=== PATIENT | male | born 1980 | race Caucasian/White ===

== ENCOUNTER 2017-10-30 12:57 | Emergency (ER) | payer OTHER ==
[~2017-10-30] VITALS: Ht 180.3 cm; Wt 118.9 kg
[~2017-10-30 12:57] MED LIST: BUPR2MIS SL
[2017-10-30 13:03] VITALS: Ht 180.3 cm; Wt 118.9 kg
--- NOTE | 2017-10-30 13:31 | EMERGENCY ROOM VISIT NOTE ---
History Report prepared by Triston: Sotero Cunningham Under the Supervision of: Dr. Porfirio Schaffer M.D. First contact with patient: 13:07 Chief Complaint: ANXIETY Stated Complaint: UNEASY PANIC ATTACKS LEFT ARM TINGLING History of Present Illness The patient is a 37 year old white male with a past medical history of cocaine abuse and panic attacks who presents to the ED with a cc of episodes of panic attacks beginning over the past week. Positive feels like passing out. Negative high blood pressure, loss of consciousness, cough, fevers, chills, leg swelling , suicidal ideations, homicidal ideations, hallucinations. He states that he had not had a panic attack ever since both his parents within 5 months of each other 2 years ago, but over the past 6 nights, he has been having panic attacks, especially when he "thinks about bad things". The patient notes that he has to drink a beer sometimes to go to sleep. He states that he does not take any daily medications. Source of History: patient Onset: Over past week Position: other (global) Symptom Intensity: episodes every night Quality: other (panic attacks) Timing: other (episodes) Associated Symptoms: No LOC, No fevers, No chills, No cough Note: Positive high blood pressure. Negative leg swelling, SI, HI. Review of Systems See HPI for pertinent positives and negatives. A total of ten systems were reviewed and were otherwise negative. Past Medical & Surgical Medical Problems: (1) Cocaine Abuse-Unspec (2) Panic attacks (3) Tobacco Use Disorder Family History No pertinent family history Social History Smoking Status: Current Some Day Smoker Alcohol Use: occasionally Drug Use: none Marital Status: single Occupation Status: employed Current/Historical Medications Scheduled Buprenorphine Hcl-Naloxone Hcl (Suboxone 8-2 Mg), 2 TAB SL DAILY Scheduled PRN Hydroxyzine Pamoate (Vistaril), 1 CAP PO BID PRN for Anxiety/Agitation Allergies Coded Allergies: BEE STING (Unverified Adverse Reaction, Unknown, UNKNOWN, 10/30/17) Uncoded Allergies: BEES (Allergy, Mild, 06/13/08) Physical Exam Vital Signs Date Time Temp Pulse Resp B/P (MAP) Pulse Ox O2 Delivery O2 Flow Rate FiO2 10/30/17 16:13 37.0 71 20 145/87 98 10/30/17 15:36 71 20 145/87 98 Room Air 10/30/17 13:03 37.0 93 18 181/124 98 Room Air Physical Exam GENERAL: Awake, alert, well-appearing, NAD HENT: Normocephalic, atraumatic. EYES: Normal conjunctiva. Sclera non-icteric. NECK: Supple. No nuchal rigidity. FROM. RESPIRATORY: CTAB, no rhonchi, wheezing, crackles CARDIAC: Tachy and regular, no MRG ABDOMEN: Soft, NTND, BS+ MSK: No chest wall TTP, no LE edema NEURO: GCS 15, CN 2-12 intact, moves all 4s on command SKIN: No rash or jaundice noted. Medical Decision & Procedures ER Provider Diagnostic Interpretation: X-ray: Per my interpretation, radiologist review. CHEST ONE VIEW PORTABLE CLINICAL HISTORY: 37 years-old Male presenting with ABDOMINAL PAIN/GI. TECHNIQUE: Portable upright AP view of the chest was obtained. COMPARISON: 03/31/2011. FINDINGS: Cardiomediastinal silhouette normal. Lungs and pleural spaces clear. Osseous structures normal. Upper abdomen normal. IMPRESSION: 1. No acute cardiopulmonary disease. Electronically signed by: John Baum M.D. 10/30/2017 2:40 PM Dictated Date/Time: 10/30/2017 2:39 PM Laboratory Results 10/30/17 14:45 Red Blood Count 5.00, Mean Corpuscular Volume 79.0, Mean Corpuscular Hemoglobin 27.4, Mean Corpuscular Hemoglobin Concent 34.7, Mean Platelet Volume 9.3, Neutrophils (%) (Auto) 70.8, Lymphocytes (%) (Auto) 20.2, Monocytes (%) (Auto) 7.7, Eosinophils (%) (Auto) 0.9, Basophils (%) (Auto) 0.2, Neutrophils # (Auto) 5.77, Lymphocytes # (Auto) 1.65, Monocytes # (Auto) 0.63, Eosinophils # (Auto) 0.07, Basophils # (Auto) 0.02 10/30/17 14:45 Test 10/30/17 14:45 White Blood Count 8.16 K/uL (4.8-10.8) Red Blood Count 5.00 M/uL (4.7-6.1) Hemoglobin 13.7 g/dL (14.0-18.0) Hematocrit 39.5 % (42-52) Mean Corpuscular Volume 79.0 fL (80-100) Mean Corpuscular Hemoglobin 27.4 pg (25-34) Mean Corpuscular Hemoglobin Concent 34.7 g/dl (32-36) Platelet Count 211 K/uL (130-400) Mean Platelet Volume 9.3 fL (7.4-10.4) Neutrophils (%) (Auto) 70.8 % Lymphocytes (%) (Auto) 20.2 % Monocytes (%) (Auto) 7.7 % Eosinophils (%) (Auto) 0.9 % Basophils (%) (Auto) 0.2 % Neutrophils # (Auto) 5.77 K/uL (1.4-6.5) Lymphocytes # (Auto) 1.65 K/uL (1.2-3.4) Monocytes # (Auto) 0.63 K/uL (0.11-0.59) Eosinophils # (Auto) 0.07 K/uL (0-0.5) Basophils # (Auto) 0.02 K/uL (0-0.2) RDW Standard Deviation 36.9 fL (36.4-46.3) RDW Coefficient of Variation 12.9 % (11.5-14.5) Immature Granulocyte % (Auto) 0.2 % Immature Granulocyte # (Auto) 0.02 K/uL (0.00-0.02) Anion Gap 6.0 mmol/L (3-11) Est Creatinine Clear Calc Drug Dose 152.7 ml/min Estimated GFR () 127.5 Estimated GFR (Non- 110.0 BUN/Creatinine Ratio 14.3 (10-20) Calcium Level 8.7 mg/dl (8.5-10.1) Total Bilirubin 0.2 mg/dl (0.2-1) Direct Bilirubin < 0.1 mg/dl (0-0.2) Aspartate Amino Transf (AST/SGOT) 27 U/L (15-37) Alanine Aminotransferase (ALT/SGPT) 52 U/L (12-78) Alkaline Phosphatase 61 U/L (45-117) Total Protein 7.9 gm/dl (6.4-8.2) Albumin 3.7 gm/dl (3.4-5.0) Lipase 125 U/L (73-393) Laboratory results reviewed by me Medications Administered Medications (Trade) Dose Ordered Sig/Rikki Route Start Time Stop Time Status Last Admin Dose Admin Lorazepam (Ativan Tab) 0.5 mg NOW STAT PO 10/30/17 13:50 10/30/17 13:52 DC 10/30/17 14:01 0.5 MG Lorazepam (Ativan Tab) 1 mg STK-MED ONCE .ROUTE 10/30/17 15:20 10/30/17 15:21 DC 10/30/17 15:20 1 MG Diphenhydramine HCl (Benadryl Cap) 25 mg NOW ONCE PO 10/30/17 15:30 10/30/17 15:31 DC 10/30/17 15:31 25 MG ECG Per My Interpretation Indication: SOB/dyspnea Rate (beats per minute): 72 Rhythm: normal sinus Findings: T-wave inversion (single in lead 3), other (normal intervals, normal axis, no other sts changes or twi) ED Course 1326: The patient was evaluated in room A8. A complete history and physical exam was performed. 1547: I reevaluated the patient and he is resting comfortably. Discussed results and discharge instructions: he verbalized understanding and agreement. The patient is ready for discharge. Medical Decision The patient is a 37 year old white male with a past medical history of cocaine abuse and panic attacks who presents to the ED with a cc of episodes of panic attacks beginning over the past week. Positive feels like passing out. Negative high blood pressure, loss of consciousness, cough, fevers, chills, leg swelling , suicidal ideations, homicidal ideations, hallucinations. Differential diagnosis: Etiologies such as mood disorder, infection, hypoglycemia, electrolyte abnormalities, cardiac sources, intracerebral event, toxicologic, neurologic, as well as others were entertained. Patient was seen and evaluated the bedside. Patient has complained of recurrent panic attacks. Patient states that typically happens after working he usually requires alcohol to help. Patient denies any SI, HI, or AVH. The patient is not seeing a psychiatrist or mental health specialist in the past. Patient does relate that this got worse when the patient's parents have approximately 2 years prior. Patient was complaining of some chest discomfort and shortness of breath. Patient also was concerned about high blood pressure for which he is fixated on. I did discuss that the patient may have an elevated blood pressure secondary to his anxiety. The patient was given anti-anxiety medications. The patient did have blood work completed, EKG , chest x-ray. Patient's EKG does not show any ischemic changes. No evidence of right heart strain. Less likely ACS or PE. Patient blood work is fairly unremarkable. Patient did have some very mild anemia. Patient's kidney function normal. Patient was scheduled for a follow-up appointment on November 04. This time he was told to discuss seeing antihypertensive medications with his PCP. Patient was given some Vistaril to use at home. Patient was also given a follow-up with the primary care physician. Patient was also counseled on diet and exercise. Patient was also counseled on smoking cessation. Patient was given strict follow-up, discharge, and return precautions. All questions were answered. Patient was deemed suitable for outpatient follow-up at this time. Patient agreed with the plan of care and was safely discharged home. Medication Reconcilliation Current Medication List: was personally reviewed by me Blood Pressure Screening Patient's blood pressure: Elevated blood pressure Blood pressure disposition: Referred to PCP Impression Primary Impression: Acute anxiety Additional Impressions: Anemia Encounter for smoking cessation counseling Scribe Attestation The scribe's documentation has been prepared under my direction and personally reviewed by me in its entirety. I confirm that the note above accurately reflects all work, treatment, procedures, and medical decision making performed by me. Departure Information Dispostion Home / Self-Care Prescriptions Hydroxyzine Pamoate (VISTARIL) 25 Mg Cap 1 CAP PO BID Y for Anxiety/Agitation for 30 Days, #12 CAP 1 Refill Prov: Porfirio Schaffer M.D. 10/30/17 Referrals No Doctor, Assigned (PCP) Patient Instructions Anxiety Body Response, Anxiety Disorder, My [facility] Additional Instructions Please return to the emergency department if you have worsening or recurrent symptoms not amenable to at-home treatment. Please call for a follow-up appointment with her primary care physician. Please take your medications as prescribed. If you have other concerns and/or complaints please feel free to also call your primary care physician's office or return the ED for further evaluation, management, and treatment. You were found to have an elevated blood pressure today (>120 sytolic or >90 diastolic). Per medicare guidelines, you need to follow up with this blood pressure screening with your Primary Care Physician (PCP). For a new PCP call [phone]. You received narcotic or benzodiazepene medication while in the emergency room today. This is an addictive medication that may cause drowziness as well as constipation. Do not drive, operate heavy machinery, or drink alcohol under the influence of this medication. You may take 600 mg Ibuprofen every 6 hours as needed for pain with food for no more than 2 consecutive days. You may take tylenol 1000 mg every 6 hours as needed for pain. You may take motrin and tylenol separately or at the same time. You may take the Vistaril as needed for anxiety. Please only use as prescribed. Please do not use if you are needed to work, drive, or major or full attention. Please follow-up with your primary care physician in order to help better control your anxiety and/or panic. Take your medications as prescribed. You have been examined and treated today on an emergency basis only. This is not a substitute for, or an effort to provide, complete comprehensive medical care. It is impossible to recognize and treat all injuries or illnesses in a single emergency department visit. It is therefore important that you follow up closely with [facility], your PCP, and/or your specialist(s). Call as soon as possible for an appointment. Thank you for your time and consideration. I look forward to speaking with you again soon. Please don't hesitate to call us if you have any questions. Problem Qualifiers Additional Impressions: Anemia Anemia type: unspecified type Qualified Codes: D64.9 - Anemia, unspecified
[2017-10-30] MEDS ORDERED: BUPR1SUB23 SL (13:41)
[2017-10-30] MEDS ORDERED: LORAZEPAM 0.5 MG TAB PO STA (13:50)
--- NOTE | 2017-10-30 14:41 | DIAGNOSTIC IMAGING REPORT ---
CHEST ONE VIEW PORTABLE CLINICAL HISTORY: 37 years-old Male presenting with ABDOMINAL PAIN/GI. TECHNIQUE: Portable upright AP view of the chest was obtained. COMPARISON: 03/31/2011. FINDINGS: Cardiomediastinal silhouette normal. Lungs and pleural spaces clear. Osseous structures normal. Upper abdomen normal. IMPRESSION: 1. No acute cardiopulmonary disease. Electronically signed by: John Baum M.D. 10/30/2017 2:40 PM Dictated Date/Time: 10/30/2017 2:39 PM
[2017-10-30 14:58] LABS: BASO % 0.2 %; BASO ABS # 0.02 K/uL (0-0.2); EOS % 0.9 %; EOS ABS # 0.07 K/uL (0-0.5); HEMATOCRIT 39.5 % (42-52); HEMOGLOBIN 13.7 g/dL (14.0-18.0); IG# 0.02 K/uL (0.00-0.02); LYMPH % 20.2 %; LYMPH ABS # 1.65 K/uL (1.2-3.4); MEAN CORPUSCULAR HEMOGLOBIN 27.4 pg (25-34); MEAN CORPUSCULAR HGB CONC 34.7 g/dl (32-36); MEAN PLATELET VOLUME 9.3 fL (7.4-10.4); MONO % 7.7 %; MONO ABS # 0.63 K/uL (0.11-0.59); NEUT % 70.8 %; NEUT ABS # 5.77 K/uL (1.4-6.5); PLATELET COUNT 211 K/uL (130-400); RED CELL DISTRIBUTION WIDTH CV 12.9 % (11.5-14.5); RED CELL DISTRIBUTION WIDTH SD 36.9 fL (36.4-46.3); WHITE BLOOD COUNT 8.16 K/uL (4.8-10.8)
[2017-10-30 15:19] LABS: ALBUMIN 3.7 gm/dl (3.4-5.0); ALT/SGPT 52 U/L (12-78); BLOOD UREA NITROGEN 12 mg/dl (7-18); CALCIUM 8.7 mg/dl (8.5-10.1); CARBON DIOXIDE 27 mmol/L (21-32); CREATININE 0.86 mg/dl (0.60-1.40); GLUCOSE 106 mg/dl (70-99); LIPASE 125 U/L (73-393); POTASSIUM 4.1 mmol/L (3.5-5.1); SODIUM 138 mmol/L (136-145)
[2017-10-30] MEDS ORDERED: LORAZEPAM 1 MG TAB ONE (15:20)
[2017-10-30 15:22] LABS: ALKALINE PHOSPHATASE 61 U/L (45-117); AST/SGOT 27 U/L (15-37); TOTAL PROTEIN 7.9 gm/dl (6.4-8.2)
[2017-10-30] MEDS ORDERED: LORAZEPAM 1 MG TAB PO STA (15:26)
[2017-10-30] MEDS ORDERED: HYDR25CA PO (15:43)
[2017-10-30 16:13] VITALS: BP 145/87; PULSE 71; TEMP 37; O2SAT 98
== END 2017-10-30 16:14 | disposition home or self-care (01) ==
LOC: C.EDB 13:00 → C.EDA 16:14
DX: F41.9 Anxiety disorder, unspecified (principal); D64.9 Anemia, unspecified; Z71.6 Tobacco abuse counseling; F14.10 Cocaine abuse, uncomplicated; F17.210 Nicotine dependence, cigarettes, uncomplicated; Z79.899 Other long term (current) drug therapy; Z91.030 Bee allergy status